=== PATIENT | female | born 1995 | race Caucasian/White ===

== ENCOUNTER → 2022-03-14 17:36 | Outpatient (CLI) | payer SELFPAY | PROVIDERS: Referring Provider Internal Medicine; Visit Provider Internal Medicine | DX: Z23 Encounter for immunization (principal) | CPT/HCPCS: 90471; 90686 ==

== ENCOUNTER → 2022-07-12 10:21 | Outpatient (CLI) | payer OTHER, SELFPAY ==
[2022-07-12 11:50] LABS: Add Manual Diff / Slide Review NO; Basophils Absolute Auto 100 /uL (0-100); Eosinophils Absolute Auto 100 /uL (0-450); Eosinophils Percent Auto 1.2 % (2-4); Hematocrit 38.9 % (36-46); Hemoglobin 13.4 g/dL (12.0-16.0); Lymphocytes Absolute Auto 1800 /uL (1100-4500); Lymphocytes Percent Auto 32.2 % (25-40); Mean Corpuscular HGB Conc 34.5 % (30-36); Mean Corpuscular Hemoglobin 29.6 PG (26-34); Mean Corpuscular Volume 85.7 fL (80-100); Monocytes Absolute Auto 500 /uL (0-900); Monocytes Percent Auto 8.2 % (3-14); Neutrophils Absolute Auto 3200 /uL (1500-7000); Neutrophils Percent Auto 57.4 % (50-75); Platelet Count 323 X10^3/uL (150-400); Red Blood Cell Count 4.54 X10^6/uL (4.0-5.2); Red Cell Distribution Width 12.2 % (11.6-14.8); White Blood Cell Count 5.7 X10^3/uL (4.5-11.0)
[2022-07-12 12:00] LABS: Prothrombin Time 11.5 SECONDS (10.1-12.7)
[2022-07-12 12:03] LABS: PTT Partial Thromboplastin Tim 29 SECONDS (26-36)
[2022-07-12 12:05] LABS: Alanine Aminotransferase 14 IU/L (<35); Albumin 4.3 g/dL (3.5-5.0); Albumin Globulin Ratio 1.4 (1.0-2.8); Alkaline Phosphatase 59 U/L (38-126); Aspartate Aminotransferase 24 IU/L (14-36); BUN Creatinine Ratio 22.7 (6-22); Bilirubin Total 0.3 mg/dL (0.2-1.3); Blood Urea Nitrogen 15 mg/dL (7-17); Calcium 9.2 mg/dL (8.4-10.2); Carbon Dioxide 27 mmol/L (22-32); Chloride 104 mmol/L (98-107); Estimated Glomerular Filt Rate > 60 mL/min (>60); Globulin 3.1 g/dL (1.7-4.1); Glucose 74 mg/dL (70-100); HEMOLYSIS < 15 (0-50); Potassium 4.2 mmol/L (3.4-5.1); Sodium 138 mmol/L (137-145); Total Protein 7.4 g/dL (6.3-8.2)
== END ==
PROVIDERS: Referring Provider Student in an Organized Health Care Education/Training Program; Visit Provider Student in an Organized Health Care Education/Training Program
DX: K62.5 Hemorrhage of anus and rectum (principal); R04.0 Epistaxis
CPT/HCPCS: 36415; 80053; 85025; 85610; 85730

== ENCOUNTER 2022-07-24 10:07 | Day surgery (SDC) | payer OTHER, SELFPAY ==
[2022-07-24 11:58] VITALS: BP 115/76; PULSE 95; RESP 16; TEMP 36.4; O2SAT 100; BMI 21.4
[2022-07-24] MEDS: LACTATED RINGERS 1,000 ML 42 ML IV (12:28)
--- NOTE | 2022-07-24 12:53 | P.HP_ITS ---
History of Present Illness History of Present Illness Date Patient Seen: 07/24/22 Time Patient Seen: 12:53 Chief complaint: SDC Narrative: 26-year-old woman here for diagnostic colonoscopy secondary to intermittent rectal bleeding. No unintentional unintentional weight loss does have some epigastric discomfort. No family history of intestinal malignancy. PFSH Social History household members: significant other Smoking Status: Never smoker alcohol intake: never Meds Home Medications and Allergies Home Medications Medication Instructions Recorded Confirmed Type Control 1 tab PO DAILY 07/12/22 07/24/22 History sertraline 100 mg tablet 100 mg PO DAILY 07/12/22 07/24/22 History omeprazole 20 mg capsule,delayed 20 mg PO DAILY 07/24/22 07/24/22 History release Allergies Allergy/AdvReac Type Severity Reaction Status Date / Time Latex, Natural Rubber Allergy Mild Rash Verified 07/24/22 11:56 Exam Vital Signs (past 8 hours): - 07/24/22 11:58 Temperature 97.6 F Pulse Rate 95 H Respiratory Rate 16 Blood Pressure 115/76 Pulse Oximetry 100 Oxygen Delivery Method Room Air Oxygen Delivery Method Room Air Narrative Exam Narrative: General adult woman alert oriented no acute distress Assessment & Plan Assessment and plan (1) Rectal bleeding: Status: Acute Assessment & Plan narrative: 26-year-old woman with intermittent rectal bleeding here for diagnostic colonoscopy and possible hemorrhoidal banding. Technical details were discussed. Risks, benefits, alternatives explained. Risks including but not limited to myocardial infarction, aspiration, bleeding, pain, missed lesion, incomplete examination, need for further radiographic studies, colonic perfora tion, and need for major abdominal surgery were discussed. All questions were answered to their satisfaction, and they are in agreement with this plan.
[2022-07-24 13:25] VITALS: BP 106/80; PULSE 98; RESP 14; TEMP 36.1; O2SAT 100
--- NOTE | 2022-07-24 13:29 | PM.OP.COLON ---
Operative Date/Time/Diagnoses Date of procedure: 07/24/22 Time of procedure: 13:29 Pre-op diagnosis: Rectal bleeding Post-op diagnosis: other (Internal hemorrhoids) Procedure & Clinicians Study performed: Colonoscopy Same procedure as scheduled: Yes Indications: Rectal bleeding. Surgeon: Prosper Acosta Procedure Notes Procedure in detail: The history and physical was performed/updated and the patient is ASA class is 2. The procedure was discussed in detail with the patient. Potential risks complications including infection, bleeding, missed diagnosis, perforation, need for surgery, and were explained. Their questions were answered and informed consent was obtained. Patient was brought to the procedure room and placed standard monitoring equipment. The patient's vital signs were monitored continuously throughout the entire procedure. Prior to starting time-out was performed. The patient was placed in the left lateral recumbent position. Procedural sedation was administered by anesthesia. Examination began with a thorough inspection of the perianal area there was no evidence of fissures, fistulae, external hemorrhoids or cutaneous malignancy. The colonoscopy scope was then placed into the anal canal and was advanced to the cecum, which was identified by the ileocecal valve, the appendiceal orifice and the confluence of the taenia. The scope was then slowly withdrawn examining colon thoroughly in all directions, irrigating it of any residual stool. Normal colon. Without masses or polyps. Grade 2 internal hemorrhoids on retroflexion within the rectum. The patient tolerated the procedure well. They will be discharged once criteria are met. The prep was of good/excellent quality. The withdrawl time was 6 minutes. Following completion of the colonoscopy the hemorrhoidal banding was performed. The anoscope was placed and there were grade 2 internal hemorrhoids involving the right posterior and left lateral columns. Each column was elevated using the suction and then doubly ligated at their base. She tolerated the procedure well. Specimen(s): none sent Complications: none Impression: Internal hemorrhoids Post-procedure Recommendations: High fiber diet Follow up: weeks (2) Disposition: same day surgery
[2022-07-24 13:31] VITALS: BP 114/57; PULSE 83; RESP 17; TEMP 36.8; O2SAT 99
[2022-07-24 13:41] VITALS: BP 108/71; PULSE 85; RESP 19; TEMP 36.8; O2SAT 99
== END 2022-07-24 13:57 | disposition home or self-care (01) ==
PROVIDERS: Referring Provider Surgery; Visit Provider Surgery
PROC: 0DJD8ZZ Inspection of Lower Intestinal Tract, Via Natural or Artificial Opening Endoscopic (ICD-10-PCS; CPT 45378; principal; 2022-07-24 11:15)
DX: K62.5 Hemorrhage of anus and rectum (principal); K64.1 Second degree hemorrhoids; G89.18 Other acute postprocedural pain
CPT/HCPCS: 45378; 46221; 36415; 74021; 80053; 83690; 85025; 96374; 96375; 99284; J1170; J1885; J2405; J2704

== ENCOUNTER → 2022-07-24 15:47 | Outpatient (CLI) | payer OTHER, SELFPAY ==
--- NOTE | 2022-07-24 15:48 | DI.RAD.S_ITS ---
PROCEDURE: XR ABDOMEN 3V INDICATIONS: look for free air. s/p colonoscopy w abd pain. TECHNIQUE: One view chest and two views of the abdomen were acquired. COMPARISON: None. FINDINGS: Surgical changes and devices: None. Chest: Lungs are clear. Heart size is normal. No pleural effusions. No pneumoperitoneum. Abdomen: Bowel gas pattern is normal. No suspicious calcifications. Visualized solid organ contours appear normal. Bones: No suspicious bony lesions. IMPRESSION: No acute process. Dictated by: Violette Romero M.D. on 07/24/2022 at 16:05 Approved by: Violette Romero M.D. on 07/24/2022 at 16:05
== END ==
PROVIDERS: Referring Provider Surgery; Visit Provider Surgery
DX: R10.13 Epigastric pain (principal); G89.18 Other acute postprocedural pain
CPT/HCPCS: 74021

== ENCOUNTER 2022-07-24 15:57 | Emergency (ER) | payer OTHER, SELFPAY ==
[2022-07-24 16:35] VITALS: BP 110/65; PULSE 109; RESP 20; TEMP 36.6; O2SAT 98; BMI 21.4
[2022-07-24 17:18] LABS: Add Manual Diff / Slide Review NO; Basophils Absolute Auto 0 /uL (0-100); Basophils Percent Auto 0.4 % (0-2); Eosinophils Absolute Auto 0 /uL (0-450); Eosinophils Percent Auto 0.3 % (2-4); Hematocrit 37.5 % (36-46); Hemoglobin 13.2 g/dL (12.0-16.0); Lymphocytes Absolute Auto 1300 /uL (1100-4500); Lymphocytes Percent Auto 19.4 % (25-40); Mean Corpuscular HGB Conc 35.3 % (30-36); Mean Corpuscular Hemoglobin 29.4 PG (26-34); Mean Corpuscular Volume 83.2 fL (80-100); Monocytes Absolute Auto 500 /uL (0-900); Monocytes Percent Auto 7.4 % (3-14); Neutrophils Absolute Auto 4700 /uL (1500-7000); Neutrophils Percent Auto 72.5 % (50-75); Platelet Count 299 X10^3/uL (150-400); Red Blood Cell Count 4.51 X10^6/uL (4.0-5.2); Red Cell Distribution Width 12.1 % (11.6-14.8); White Blood Cell Count 6.5 X10^3/uL (4.5-11.0)
[2022-07-24 17:21] LABS: Alanine Aminotransferase 21 IU/L (<35); Albumin 4.4 g/dL (3.5-5.0); Albumin Globulin Ratio 1.4 (1.0-2.8); Alkaline Phosphatase 56 U/L (38-126); Aspartate Aminotransferase 23 IU/L (14-36); Bilirubin Total 0.4 mg/dL (0.2-1.3); Blood Urea Nitrogen 16 mg/dL (7-17); Calcium 9.2 mg/dL (8.4-10.2); Carbon Dioxide 20 mmol/L (22-32); Chloride 107 mmol/L (98-107); Estimated Glomerular Filt Rate > 60 mL/min (>60); Globulin 3.2 g/dL (1.7-4.1); Glucose 137 mg/dL (70-100); HEMOLYSIS < 15 (0-50); Lipase 119 U/L (23-300); Potassium 3.6 mmol/L (3.4-5.1); Sodium 138 mmol/L (137-145); Total Protein 7.6 g/dL (6.3-8.2)
--- NOTE | 2022-07-24 18:09 | ED.GENADULT ---
HPI - General Adult General Chief complaint: Abdominal Pain Stated complaint: Abd pain after colonoscopy today, bleeding Time Seen by Provider: 07/24/22 17:48 Source: patient Mode of arrival: Ambulatory History of Present Illness HPI narrative: Otherwise healthy 26-year-old woman who had colonoscopy an internal hemorrhoid banding today who was not told that she should experience any pain post discharge and is having a minor amount of bright red blood per rectum, significant pain and enough swelling that she has not been able to pass any gas and is feeling slightly bloated. There is no fevers, cough, palpitations, chest pain. Related Data Home Medications Medication Instructions Recorded Confirmed Control 1 tab PO DAILY 07/12/22 07/24/22 sertraline 100 mg tablet 100 mg PO DAILY 07/12/22 07/24/22 omeprazole 20 mg capsule,delayed 20 mg PO DAILY 07/24/22 07/24/22 release Previous Rx's Medication Instructions Recorded docusate sodium 100 mg capsule 100 mg PO BID #30 caps 07/24/22 (Colace) Allergies Allergy/AdvReac Type Severity Reaction Status Date / Time Latex, Natural Rubber Allergy Mild Rash Verified 07/24/22 16:38 Review of Systems Review of Systems Narrative: Pertinent positive and negative findings as per HPI Patient History Surgical History (Updated 07/24/22 @ 19:12 by Glo Raygoza MD) History of colonoscopy Social History household members: significant other Smoking Status: Never smoker alcohol intake: never Smoking Status: Never smoker Substance Use Type: does not use Exam Initial Vital Signs Initial Vital Signs: Vital Signs Temperature 98 F 07/24/22 16:35 Pulse Rate 109 H 07/24/22 16:35 Respiratory Rate 20 07/24/22 16:35 Blood Pressure 110/65 07/24/22 16:35 Pulse Oximetry 98 07/24/22 16:35 Oxygen Delivery Method Room Air 07/24/22 16:35 General: Healthy appearing, in moderate distress secondary to pain. Able to give a complete and coherent history. Well-nourished well-developed HEENT: Moist mucous membranes, normal sclera with reactive pupils, Respiratory: Lungs are clear to auscultation, no wheezing no rales no rhonchi. Full and symmetrical air movement Cardiac: Regular rate and rhythm no murmurs no bruits Abdomen: Soft, nontender, good bowel tones, no flank pain Skin: Warm and dry, no rashes Neurologic: Grossly neurologically intact with no obvious asymmetries or abnormalities Extremities: No trauma, well perfused Psych: Cooperative, appropriate insight and affect Course Orders Ordered: ED Orders 07/24/22 17:00 Complete Blood Count AUTO DIFF Stat Comprehensive Metabolic Panel Stat Lipase Stat Ondansetron HCl (Ondansetron 4 Mg Odt) 4 mg PO NOW PRN PRN Reason: Nausea And Vomiting Ondansetron HCl (Ondansetron 4 Mg/2 Ml Inj) 4 mg IV NOW PRN PRN Reason: Nausea And Vomiting Vital Signs Vital signs: Vital Signs - 8 hr 07/24/22 16:35 Temperature 98 F Pulse Rate 109 H Respiratory Rate 20 Blood Pressure 110/65 Pulse Oximetry 98 Oxygen Delivery Method Room Air Medical Decision Making Lab Data 07/24/22 17:00 07/24/22 17:00 Labs: Lab Results 07/24/22 07/24/22 Range/Units 17:00 17:00 WBC 6.5 (4.5-11.0) X10^3/uL RBC 4.51 (4.0-5.2) X10^6/uL Hgb 13.2 (12.0-16.0) g/dL Hct 37.5 (36-46) % MCV 83.2 (80-100) fL MCH 29.4 (26-34) PG MCHC 35.3 (30-36) % RDW 12.1 (11.6-14.8) % Plt Count 299 (150-400) X10^3/uL Neut % (Auto) 72.5 (50-75) % Lymph % (Auto) 19.4 L (25-40) % Sanders % (Auto) 7.4 (3-14) % Eos % (Auto) 0.3 L (2-4) % Baso % (Auto) 0.4 (0-2) % Neut # (Auto) 4700 (4540-6348) /uL Lymph # (Auto) 1300 (0038-7038) /uL Sanders # (Auto) 500 (0-900) /uL Eos # (Auto) 0 (0-450) /uL Baso # (Auto) 0 (0-100) /uL Sodium 138 (137-145) mmol/L Potassium 3.6 (3.4-5.1) mmol/L Chloride 107 (98-107) mmol/L Carbon Dioxide 20 L (22-32) mmol/L BUN 16 (7-17) mg/dL Creatinine 0.80 (0.52-1.04) mg/dL Estimated GFR > 60 (>60) mL/min BUN/Creatinine Ratio 20.0 (6-22) Glucose 137 H (70-100) mg/dL Calcium 9.2 (8.4-10.2) mg/dL Total Bilirubin 0.4 (0.2-1.3) mg/dL AST 23 (14-36) IU/L ALT 21 (<35) IU/L Alkaline Phosphatase 56 (38-126) U/L Total Protein 7.6 (6.3-8.2) g/dL Albumin 4.4 (3.5-5.0) g/dL Globulin 3.2 (1.7-4.1) g/dL Albumin/Globulin Ratio 1.4 (1.0-2.8) Lipase 119 (23-300) U/L MDM Narrative Medical decision making narrative: CC: Postop pain, this is a new diagnosis uncertain prognosis Complicating co-morbidities: Colonoscopy earlier today, hemorrhoidal banding Data collected from: patient, Medical records reviewed: Colonoscopy note from today which indicates grade 2 internal hemorrhoids involving the right posterior and left lateral calms that were elevated in double ligated. Post procedural x-ray does not show free air or other complications Differential considered: Postoperative pain, perforation, intra-abdominal abscess, acute surgical abdomen Exam documented above, pertinent findings include: Moderate pain at the rectum with minor amount of bright red blood as would be expected. Her abdomen is soft, no significant distention certainly no evidence of acute surgical abdomen Lab Test results independently reviewed as above. Pertinent findings: CBC is unremarkable, no significant anemia or leukocytosis Chemistries are reassuring with no acute findings Imaging studies independently reviewed: Abdominal x-ray has no acute findings and specifically no free air Consultations: Discussed with Dr. Mancera, surgeon on-call Treatments: IV Toradol, parenteral Dilaudid and topical lidocaine jelly just inside the anal verge Re-evaluations: Patient is feeling much better. Somewhat frustrated that she was not given pain medications on discharge and was not told to expect any pain postprocedure. Discussion: 26-year-old woman post colonoscopy with internal hemorrhoidal banding. It may be that there was a small portion of the anal verge that was included with the banding which is why she is having so much pain at this point. There was no evidence of acute obstruction, perforation or any free air. Her pain was easily controlled. Understanding where it might be coming from an why it was there was actually more effective than pain medication was administered. She will be given a small prescription Percocet to use at home. She has stool softeners and will continue with these. She has follow-up scheduled and will keep this. Understands reasons to return to the emergency department. She is safe for discharge home Discharge Plan Departure Patient Disposition: Home Clinical Impression: Post-op pain Instructions: DI for Hemorrhoid Banding Activity Restrictions/Additional Instructions: Thank you for coming in tonight I am sorry that your colonoscopy in hemorrhoidal banding was a bit more than you had anticipated. Fortunately, there does not appear to be any serious complication and we can definitely help with pain control. In the emergency department you are given Toradol 3 or IV, medicine in the same classes ibuprofen. You were also given a small amount of narcotic. The lidocaine ointment can be applied with your finger just gently through your rectum to help actually numb up the surface that is likely the cause of your pain. Please make sure you continue to take your stool softener. I suspect that as your pain is better controlled and the swelling starts to decrease your bowels began working normally again. Using 400 mg of ibuprofen (2 [id number] pills) and 1 Tylenol every 6 hours can be very helpful in controlling pain. For severe pain you can use 400 mg of ibuprofen and 1 Percocet. Please know that Percocet does have narcotic and will cause constipation which can make her symptoms worse. Again, stressing the importance of stool softeners. If you find that your having worsening bleeding, pain that can not be controlled, truly can not pass any gas and your belly is becoming more distended or you develop new findings please do return to the emergency department Prescriptions: No Action sertraline 100 mg tablet 100 mg PO DAILY Control 1 tab PO DAILY omeprazole 20 mg Capsule,Delayed Release(Dr/Ec) 20 mg PO DAILY docusate sodium [Colace] 100 mg capsule 100 mg PO BID Qty: 30 0RF Referrals: Miscellaneous,Doctor, MD [Primary Care Provider] - Stand Alone Forms: Patient Portal/API
[2022-07-24 18:12] VITALS: BP 105/76; PULSE 91; O2SAT 97
[2022-07-24 18:30] VITALS: BP 108/74; PULSE 95; O2SAT 96
[2022-07-24 19:00] VITALS: BP 111/69; PULSE 84; O2SAT 96
[2022-07-24] MEDS: KETOROLAC 30 MG/ML VIAL 15 MG IV (19:23)
[2022-07-24] MEDS: HYDROMORPHONE 0.5 MG INJ IV (19:23)
[2022-07-24] MEDS: OXYCODONE/APAP 5/325 PREPACK 1 BOTTLE MISC (19:23)
[2022-07-24 19:30] VITALS: BP 107/63; PULSE 90; O2SAT 96
== END 2022-07-24 19:48 | disposition home or self-care (01) ==
PROVIDERS: Emergency Medicine; Emergency Provider Emergency Medicine
DX: G89.18 Other acute postprocedural pain (principal); K62.5 Hemorrhage of anus and rectum
CPT/HCPCS: 36415; 80053; 83690; 85025; J1170; J1885